=== PATIENT | female | born 1955 | race Caucasian/White ===

== ENCOUNTER → 2020-11-12 | Outpatient (CLI) | payer OTHER ==
[~2020-11-12] MED LIST: APAP500 PO; BYSTOLIC 5 MG5 M1 PO; CALCIUM 500 WI1 EAC3; CALCIUM 600 +1 EAC1 PO; CENTRUM SILVER1 EAC4 PO; COLACE100 MG PO; COUMADIN 5 MG TA5 M1 PO; CRESTOR5 MG PO; ENOXAPARIN80 MG/0.8 SUBQ; HYDROCODONE-AP1 EAC6 PO; HYDROCODONE-APA1 TA1 PO; LEVOTHYROXIN0.075 MG PO; LEVOTHYROXINE 0.1 MG PO; LOPRESSOR25 PO; NORCO 5-325 TA1 EACH PO; PROTONIX 20 MG20 M1 PO; PROTONIX40 M1 PO; STOOL SOFTENER100 MG PO; TYLENOL325 MG PO; VITAMIN D1000 UNI1 PO; VITAMIN D31000 UNI2 PO; XARELTO10 MG PO; [UNRECOGNIZED DRUG - OTHER]
== END ==
LOC: SJCVCIMAG 08:38
PROVIDERS: ATTEND Internal Medicine Cardiovascular Disease
DX: I34.0 Nonrheumatic mitral (valve) insufficiency (principal); E78.5 Hyperlipidemia, unspecified; I10 Essential (primary) hypertension